=== PATIENT | female | born 1980 | race Caucasian/White ===

== ENCOUNTER 2025-01-08 09:01 | Emergency (ER) | payer MEDICAID, SELFPAY ==
[2025-01-08] VITALS (8 sets, daily range): BP systolic 135–181; BP diastolic 101–122; PULSE 60–86; RESP 6–20; TEMP 36.3–37; O2SAT 86–100; BMI 39.9
--- NOTE | 2025-01-08 09:08 | EKG_ITS ---
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
--- NOTE | 2025-01-08 09:09 | PD.EDAMS ---
Altered Mental Status RME/HPI General Chief Complaint: Altered Mental Status Stated Complaint: PASSED OUT Time Seen by Provider: 01/08/25 09:03 Arrival date/time: 01/08/25 09:01 RME / HPI RME / HPI narrative: DR. SCHMITT MAIN ED EVALUATION: 44-year-old female past medical history of kidney stones, hypothyroidism, anemia, depression, hysterectomy, tubal ligation, a section, and methamphetamine abuse was brought in by EMS for altered mental status and hypoxia. Per EMS, the patient was found in bed by her boyfriend around 0600 hours, appearing unresponsive and altered. Per EMS, her initial oxygen saturation was in the 80s, and blood pressure was 170/100. EMS administered Narcan 2 mg IM with partial improvement in responsiveness. Blood glucose was 100 on scene. Upon arrival, the patient was drowsy but arousable. The patient confessed to the nurse methamphetamine use, but that she could not recall her last use. Related Data Previous Rx's ?Medication ?Instructions ?Recorded ibuprofen 600 mg tablet 600 mg PO QID #30 tabs 03/21/22 Allergies Allergy/AdvReac Type Severity Reaction Status Date / Time quetiapine (From Seroquel) Allergy Severe Hallucinati Verified 01/08/25 09:15 ng sulfamethoxazole Allergy Severe NAUSEA AND Verified 01/08/25 09:15 RASH trimethoprim Allergy Severe RASH Verified 01/08/25 09:15 codeine Allergy Mild DIFF Verified 01/08/25 09:15 BREATHING Review of Systems Review of Systems ROS Unobtainable: unobtainable due to mental status Past Medical History Past Medical History GENITOURINARY: Positive Genitourinary Disorders and Kidney Stones MUSCULOSKELETAL: Positive Carpal Tunnel Syndrome ENDOCRINE: Positive Hypothyroidism HEMATOLOGIC: Positive Anemia PSYCHO/SOCIAL: Positive Recreational Drug Use and Depression Surgical History SURGICAL: Positive Abdominal Surgery, Joint Replacement, Hysterectomy, Tubal Ligation and Section Social History SMOKING STATUS: Current every day smoker SECOND HAND EXPOSURE: Yes SUBSTANCE USE: amphetamines ED Exam Narrative Physical exam: GENERAL APPEARANCE: Drowsy but arousable, disheveled, poor hygiene VITALS: All vitals were reviewed and the pulse ox is 100% on 3 L/min via a nasal cannula. HEENT: Normocephalic, atraumatic; pupils 2 mm, equal, and reactive; mucous membranes moist NECK: Supple LUNGS: CTABL; no wheezes, no rales, no rhonchi HEART: Regular rate, regular rhythm; normal S1, S2; no murmurs ABDOMEN: non distended; normal BS; soft, no tenderness, no guarding, no rebound; no masses, no organomegaly, no hernia BACK: no CVA tenderness EXTREMITIES: atraumatic; no edema NEUROLOGIC: Drowsy but responds to voice; moves all extremities; no focal deficits PSYCHIATRIC: Cooperative but slow to respond; admits to meth use; denies suicidal or homicidal ideation SKIN: warm, dry, normal color; no rashes Course Quality Measures none Orders Category Date Time Status Bedside COVID-19 Antigen Test NOW Care 01/08/25 09:23 Active Financial Agent NOW Care 01/08/25 09:13 Active EKG (ED ONLY) *Do not use* NOW Care 01/08/25 09:[address] head/brain wo con Stat Exams 01/08/25 09:15 Completed EKG (ED Only) Stat Exams 01/08/25 09:08 Draft XR chest 1V portable Stat Exams 01/08/25 09:13 Completed ABG [Arterial Blood Gas] Stat Lab 01/08/25 10:15 Completed Alcohol, Blood Medical Stat Lab 01/08/25 09:20 Completed Ammonia Stat Lab 01/08/25 09:20 Completed B-Type Natriuretic Peptide Stat Lab 01/08/25 09:20 Completed CBC Stat Lab 01/08/25 09:20 Completed Comprehensive Metabolic Panel Stat Lab 01/08/25 09:20 Completed Drug Screen,Urine Stat Lab 01/08/25 09:20 Completed Influenza A & B Rapid Panel Stat Lab 01/08/25 09:25 Completed Lipase Stat Lab 01/08/25 09:20 Completed Magnesium Stat Lab 01/08/25 09:20 Completed Partial Thromboplastin Time Stat Lab 01/08/25 09:20 Completed Prothrombin Time with INR Stat Lab 01/08/25 09:20 Completed Troponin I Stat Lab 01/08/25 09:20 Completed UA, C/S IF [Urinalysis, C/S if Indicated] Stat Lab 01/08/25 09:20 Completed Urine Culture Stat Lab 01/08/25 09:20 Received Acetaminophen Tab [Tylenol Tab] Med 01/08/25 16:45 Discontinued 650 mg PO X1 ONE hydrALAZINE INJ [Apresoline Inj] Med 01/08/25 11:12 Discontinued 10 mg IVP X1 ONE Vital Signs Vital signs: Vital Signs Temperature 97.5 F 01/08/25 09:15 Pulse Rate 60 01/08/25 09:15 Respiratory Rate 12 01/08/25 09:15 Blood Pressure 181/122 H 01/08/25 09:15 Pulse Oximetry (%) 98 01/08/25 09:15 Oxygen Delivery Method Nasal Cannula 01/08/25 09:15 Oxygen Flow Rate 6 01/08/25 09:15 Altered Mental Status MDM Narrative MDM Narrative:: I, Camille Williamson, am scribing for and in the presence of Dr. Schmitt. Patient data External records reviewed:: [facility] previous records and EMS form Clinical information provided by:: patient and EMS Social determinants that could affect healthcare access:: substance use Patient has the following chronic illnesses:: past medical history of kidney stones, hypothyroidism, anemia, depression, hysterectomy, tubal ligation, a section, and methamphetamine abuse How is presenting disease/condition affected by chronic disease/condition?: exacerbated by Evaluation data The following diagnostics were reviewed and interpreted by me:: lab results, radiology exam(s) and EKG tracing(s) (My interpretation: EKG performed at 0911hours, sinus rhythm, rate 57, T wave V1-6, diffuse flattening ST segments, mild artifact) Lab and/or radiology exams considered but not ordered:: none Interpretation Summary: Procedure(s): XR chest 1V portable Accession Number(s): [id number] cc: Michele Huertas MD; NO PRIMARY/FAMILY,PHYSICIAN; Cande Schmitt MD~ EXAMINATION: AP chest single view TECHNIQUE: AP portable semiupright chest single view Date and time: Jan 082024, 0921 hours, comparison October 17, 2018 INDICATIONS: Onset chest pain today FINDINGS: Mild prominence cardiac contour. Mild vascular congestion. No pneumonia or pulmonary edema. Mild osteopenia. IMPRESSION: Mild vascular congestion Dictated By: Michele Huertas MD Procedure(s): CT head/brain wo con Accession Number(s): [id number] cc: Michele Huertas MD; NO PRIMARY/FAMILY,PHYSICIAN; Cande Schmitt MD~ Examination: CT brain head without contrast. 2-D sagittal coronal reconstructions Date and time of exam: January 08, 2025, 0945 hours INDICATIONS: Syncopal episode this morning followed by altered mental status. CTDI: vol (mGy): 50.1 DLP: (mGycm): 1021 Technique: Multiple CT axial sections of the brain have been obtained, 5 mm slice thickness. Contrast has not been administered. 2-D sagittal, coronal reconstructions have been obtained Low dose protocols were performed. One or more of the following dose reduction techniques were used; automated exposure control, adjustment of the mA and/or KV according to patient size, use of iterative reconstruction technique. Findings: No significant ventricular enlargement. Intra-axial or extra-axial hemorrhage density is not seen. No mass effect or midline shift Basal cisterns are not remarkable. Fourth ventricle is midline. Cranial vault intact. Impression: Negative for acute hemorrhage, mass effect or midline shift Advise clinical correlation and follow-up accordingly. Dictated By: Michele Huertas MD Medications / Prescriptions Medications or Prescriptions considered but not ordered:: none Medication administrations:: Medication Administration History Discontinued Medications Acetaminophen (Acetaminophen 325 Mg Tablet) 650 mg PO X1 ONE Stop: 01/08/25 16:46 Last Admin: 01/08/25 16:49 Dose: 650 mg Documented By: SIDRA Hydralazine HCl (Hydralazine Inj 20 Mg/Ml Vial) 10 mg IVP X1 ONE Stop: 01/08/25 11:13 Last Admin: 01/08/25 11:15 Dose: 10 mg Documented By: SIDRA see above Consultations Consultation(s) initiated? (list below): No Diagnosis Differential diagnosis altered mental status: other (Methamphetamine intoxication, polysubstance overdose, and hypoventilation-related hypoxia.) Most likely diagnosis given after review of the tests above:: Altered consciousness Methamphetamine abuse Admission Indicated Admission indicated?: not indicated Admission Request Was there a request for admission?: No Disposition Plan Disposition Plan: Discharge Discharge Attestation Discharge Attestation: The patient and all family members were given an opportunity to ask questions and understood the discharge instructions. Discharge instructions specifically effects, indications for sooner follow up or return to the emergency department, and the expected course of current diagnosis. Patient condition: Stable Discharge Plan Plan Patient Disposition: HOME (Self Care) Prescriptions/Referrals Prescriptions/Med Rec: No Action ibuprofen 600 mg tablet 600 mg PO QID Qty: 30 0RF Referrals: No Primary/Family,Physician [Primary Care Provider] - In 1 week Problem List Clinical Impression: Altered consciousness, Methamphetamine abuse Patient/Caregiver Discharge Instructions Education Materials: Understanding Methamphetamine ... Print Language: Bengali Stand Alone Forms: Gracie Award Info., Patient Portal Info Letter
--- NOTE | 2025-01-08 09:13 | XR_ITS ---
EXAMINATION: AP chest single view TECHNIQUE: AP portable semiupright chest single view Date and time: Jan 082024, 0921 hours, comparison October 17, 2018 INDICATIONS: Onset chest pain today FINDINGS: Mild prominence cardiac contour. Mild vascular congestion. No pneumonia or pulmonary edema. Mild osteopenia. IMPRESSION: Mild vascular congestion
--- NOTE | 2025-01-08 09:15 | XR_ITS ---
Examination: CT brain head without contrast. 2-D sagittal coronal reconstructions Date and time of exam: January 08, 2025, 0945 hours INDICATIONS: Syncopal episode this morning followed by altered mental status. CTDI: vol (mGy): 50.1 DLP: (mGycm): 1021 Technique: Multiple CT axial sections of the brain have been obtained, 5 mm slice thickness. Contrast has not been administered. 2-D sagittal, coronal reconstructions have been obtained Low dose protocols were performed. One or more of the following dose reduction techniques were used; automated exposure control, adjustment of the mA and/or KV according to patient size, use of iterative reconstruction technique. Findings: No significant ventricular enlargement. Intra-axial or extra-axial hemorrhage density is not seen. No mass effect or midline shift Basal cisterns are not remarkable. Fourth ventricle is midline. Cranial vault intact. Impression: Negative for acute hemorrhage, mass effect or midline shift Advise clinical correlation and follow-up accordingly.
[2025-01-08 09:42] LABS: Collection Type, Urine Catheter
--- NOTE | 2025-01-08 10:00 | PC.NURSE ---
PATIENT BIBA TO ED FOR ALTERED MENTAL STATUS. PATIENT WAS GCS OF 9 WHEN EMS ARRIVED TO SCENE AT HOME. PATIENT'S ROOMMATE CALLED THE AMBULANCE DUE TO PATIENT BEING ALTERED AND CYANOTIC AT THE LIPS. PATIENT WAS GIVEN NARCAN ON SCENE AND BECAME GCS 14. PATIENT IS LETHARGIC BUT RESPONDS NORMALLY. PATIENT VITALS STABLE. DR. DONG WAS MADE AWARE OF PATIENT STATING HER RIGHT SIDE WAS WEAKER AND MORE NUMB THAN LEFT. PATIENT DOES NOT REMEMBER WHAT HAPPENED TO HER OR WHY SHE WAS ALTERED. PLAN OF CARE ONGOING
[2025-01-08 10:12] LABS: Basophils # (Auto) 0.1 Thou/mm3 (0.0-0.2); Basophils % (Auto) 2 % (0-2.5); Eosinophils # (Auto) 0.2 Thou/mm3 (0.0-0.5); Eosinophils % (Auto) 4 % (0-10); Hematocrit 33.1 % (36.0-46.0); Hemoglobin 11.1 g/dL (12.0-16.0); Immature Granulocytes Auto 0.01 Thou/mm3 (0.00-0.00); Lymphocytes # (Auto) 1.5 Thou/mm3 (1.0-4.8); Lymphocytes % (Auto) 31 % (10-50); Mean Corpuscular HGB Conc 33.5 g/dl (31.0-37.0); Mean Corpuscular Hemoglobin 32.4 pg (25.0-35.0); Mean Corpuscular Volume 97 fL (80-100); Monocytes # (Auto) 0.3 Thou/mm3 (0.0-0.8); Monocytes % (Auto) 7 % (0-12); Neutrophils # (Auto) 2.8 Thou/mm3 (1.8-7.7); Neutrophils % (Auto) 57 % (37-80); Nucleated Red Blood Cell # 0.00 Thou/mm3 (0.00-0.00); Nucleated Red Blood Cell % 0 /100 WBC (0); Platelet Count 234 Thou/mm3 (140-440); RDW Standard Deviation 49.7 fL (36.4-46.3); Red Blood Count 3.43 Miln/mm3 (4.00-5.20); White Blood Count 4.9 Thou/mm3 (3.6-11.0)
[2025-01-08 10:17] LABS: INR 1.1 (0.9-1.3); Partial Thromboplastin Time 28.8 Seconds (22.0-36.0); Prothrombin Time 12.0 Seconds (9.0-12.2)
[2025-01-08 10:21] LABS: Base Excess 1 (-3-3); HCO3 26 mEq/L (20-26); Inspired Oxygen, FIO2 21 %; O2 Saturation 97 % (91-98); PCO2 43 mmHg (32.0-48.0); PO2 89 mmHg (83-108); pH, Arterial 7.39 (7.35-7.45)
--- NOTE | 2025-01-08 10:23 | PRELIM_ITS ---
CT scan of the head without intravenous contrast (axial sections with sagittal and coronal reformats). January 08, 2025 0949 hours Clinical History: AMS Comparison: No prior study is available for comparison. Findings: No evidence of intracranial hemorrhage, mass effect or midline shift. The ventricles and CSF spaces are unremarkable. The calvarium is unremarkable. The mastoid air cells and the visualized paranasal sinuses are clear. Impression: No evidence of intracranial hemorrhage, mass effect or midline shift. Report Electronically Signed By: Amara Emerson 01/08/2025 10:22:45 AM [EST]
[2025-01-08 10:25] LABS: Ammonia < 10 uMol/L (11-32)
[2025-01-08 10:26] LABS: Alanine Aminotransferase 27 U/L (10-49); Albumin, Serum 4.9 gm/dL (3.5-5.0); Albumin/Globulin Ratio 2.0 (1.2-2.2); Alcohol, Blood Medical < 3.0 mg/dL (0-10.0); Alkaline Phosphatase 44 U/L (46-116); Anion Gap 8 (7-16); Aspartate Amino Transferase 31 U/L (0-34); BUN/Creatinine Ratio 8 Ratio (12-20); Bilirubin,Total 0.5 mg/dL (0.3-1.2); Blood Urea Nitrogen 11 mg/dL (9-23); Calcium 9.8 mg/dL (8.3-10.6); Calcium (Corrected) 9.8 mg/dL (8.5-10.1); Carbon Dioxide 27.5 mMol/L (20.0-31.0); Chloride 103 mMol/L (98-107); Creatinine (Component) 1.4 mg/dL (0.6-1.3); Estimated Creatinine Clearance 63.0 mL/min (>60); Globulin 2.5 gm/dL (2.3-3.5); Glucose 111 mg/dL (74-106); Lipase 26 U/L (12-53); Magnesium 2.3 mg/dL (1.6-2.6); Osmolality,Calculated 276 (275-295); Potassium 3.9 mMol/L (3.4-5.1); Sodium 138 mMol/L (136-145); Total Protein 7.4 gm/dL (5.7-8.2); Troponin I < 0.020 ng/mL (0.0-0.045); eGFR 48 See Note
[2025-01-08 10:27] LABS: Allen Test Performed/OK; Puncture Site Right Radial
[2025-01-08 10:32] LABS: Influenza A Ag Negative; Influenza B Ag Negative
[2025-01-08 10:49] LABS: Bilirubin,Urine Negative (Negative); Blood,Urine Negative (Negative); Clarity,Urine Clear (Clear/Hazy); Color,Urine Lt-Yellow (Lt Yel-Yel); Glucose, Urine Negative (Negative); Ketones,Urine Negative (Negative); Leukocyte Esterase,Urine Positive (Negative); Nitrite,Urine Negative (Negative); PH,Urine 6.0 (5.0-7.0); Protein,Urine Negative (Neg - Trace); RBC,Urine 2 /hpf (0-3); Specific Gravity,Urine 1.019 (1.001-1.035); Squamous Epithelial Cell,Urine < 1 /hpf (0-5); Urobilinogen,Urine Negative mg/dL (0.0-1.0); WBC,Urine 11 /hpf (0-5)
[2025-01-08 10:59] LABS: Culture Indicated,Urine Yes
[2025-01-08 11:01] LABS: B-Type Natriuretic Peptide < 20 pg/mL (0-100)
[2025-01-08 11:02] LABS: Amphetamine/Methamp Scrn,U Positive (Negative); Barbiturate Screen,Urine Negative (Negative); Benzodiazepines Screen,Urine Negative (Negative); Benzoylecgonine Screen, Ur Negative (Negative); Fentanyl Screen,Urine Negative (Negative); Opiate Screen,Urine Negative (Negative); THC Screen,Urine Negative (Negative)
[2025-01-08] MEDS: hydrALAZINE INJ 20 MG/ML VIAL 10 MG IVP (11:15)
--- NOTE | 2025-01-08 15:57 | PC.NURSE ---
DR. DONG WOKE PT AND REQUESTED PT BE GIVEN FOOD. PT STILL SLEEPY BUT GIVEN SANDWICH AND JUICE AND DRINKING JUICE NOW
[2025-01-08] MEDS: ACETAMINOPHEN 325 MG TABLET 650 MG PO (16:49)
== END 2025-01-08 17:45 | disposition home or self-care (01) ==
PROVIDERS: Emergency Provider Emergency Medicine
DX: R09.89 Other specified symptoms and signs involving the circulatory and respiratory systems (principal); E03.9 Hypothyroidism, unspecified; F15.10 Other stimulant abuse, uncomplicated; R09.02 Hypoxemia; Z87.442 Personal history of urinary calculi; Z90.710 Acquired absence of both cervix and uterus; Z96.60 Presence of unspecified orthopedic joint implant
CPT/HCPCS: 36415; 36600; 70450; 71045; 80053; 80307; 80320; 81001; 82140; 82803; 83690; 83735; 83880; 84484; 85025; 85610; 85730; 87086; 87502; 87635; 93005; 96374; 99284; J0360; A9270; G0480